=== PATIENT | female | born 1970 | race Caucasian/White ===

== ENCOUNTER 2017-09-21 09:28 | Outpatient (CLI) | payer OTHER | END 2017-09-21 09:29 | disposition home or self-care (01) | LOC: BICMAMMO 09:28 | PROVIDERS: ATTEND Obstetrics & Gynecology | DX: Z12.31 Encounter for screening mammogram for malignant neoplasm of breast (principal); N64.89 Other specified disorders of breast; Z80.3 Family history of malignant neoplasm of breast | CPT/HCPCS: 77063; 77067 ==

== ENCOUNTER 2018-03-24 12:30 | Observation (INO) | payer BC, OTHER ==
[2018-03-24 13:19] LABS: #Basophils 0.1 thou/uL (0.0-0.2); #Eosinphils 0.2 thou/uL (0.0-0.7); #Lymphocytes 2.4 thou/uL (1.20-3.40); #Monocytes 0.5 thou/uL (0.11-0.59); #Neutrophils 5.3 thou/uL (1.40-6.50); %Basophils 0.7 % (0.0-1.0); %Eosinophils 2.5 % (0.0-10.0); %Lymphocytes 28.2 % (21.0-51.0); %Monocytes 5.9 % (0.0-10.0); %Neutrophils 62.6 % (42.0-75.0); Hemoglobin 12.7 g/dL (12.0-16.0); Mean Corpuscular HGB CONC 34.1 g/dL (32.0-36.0); Mean Corpuscular Hemoglobin 30.2 pg (27.0-31.0); Mean Corpuscular Volume 88.7 fL (78.0-98.0); Mean Platelet Volume 7.4 fL (7.4-10.4); Platelet Count 332 thou/uL (130-400); RBC Distribution Width 11.7 % (11.5-14.5); Red Blood Cell (RBC) Count 4.21 mill/uL (4.20-5.40); White Blood Cell (WBC) Count 8.4 thou/uL (4.8-10.8)
[2018-03-24 13:35] LABS: ALT (SGPT) 13 U/L (8-55); AST (SGOT) 17 U/L (5-34); Albumin 4.1 g/dL (3.5-5.0); Alkaline Phosphatase 60 U/L (40-150); Anion Gap 12 mmol/L (10-20); BUN (Urea Nitrogen) 11 mg/dL (7.0-18.7); Bilirubin, Total 0.4 mg/dL (0.2-1.2); Calc. Creatinine Clearance 0 mL/min (70-130); Calcium 9.3 mg/dL (7.8-10.44); Carbon Dioxide 24 mmol/L (22-29); Chloride 105 mmol/L (98-107); Estimated GFR-MDRD 82; Globulin 3.6 g/dL (2.4-3.5); Glucose 96 mg/dL (70-105); Potassium 4.2 mmol/L (3.5-5.1); Protein, Total 7.7 g/dL (6.0-8.3); Sodium 137 mmol/L (136-145)
[2018-03-24] MEDS ORDERED: Diazepam 5 MG TAB ONE (14:33)
[2018-03-24] MEDS ORDERED: Meclizine HCl 25 MG TAB ONE (15:14)
--- NOTE | 2018-03-24 15:15 | CT ---
HEAD CT WITHOUT CONTRAST: HISTORY: Dizziness. COMPARISON: None. TECHNIQUE: A noncontrast head CT is performed from the skull base to the skull vertex. FINDINGS: No parenchymal hemorrhage. No extraaxial hematoma. No midline shift. Basilar cisterns are patent. Brain volume is age appropriate. Cortical hewitt white matter differentiation is preserved. The ventricles and sulci are patent and symmetric. Subtle hypodensity inferior to the posterior aspect of the left lentiform nucleus. Indeterminate lac unar infarct. The calvarium is intact. Adequate aeration of the sinuses and mastoid air cells. IMPRESSION: Indeterminate lacunar infarct inferior to the left lentiform nucleus. Nonemergent brain MRI if clinically warranted. POS: [facility]
[2018-03-24] MEDS ORDERED: Aspirin 325 MG TAB ONE (16:23)
[2018-03-24 16:58] LABS: Bilirubin Negative (Negative); Blood, Urine Negative (Negative); Clarity CLEAR (Clear); Glucose, Urine (Dipstick) Negative (Negative); Leukocyte Small (Negative); Nitrite Negative (Negative); Protein, Urine (Dipstick) Negative (Neg-Trace); Specific Gravity, Urine 1.004 (1.002-1.036); Urobilinogen 0.2 mg/dL (0.2-1.0); pH, Urine 6.5 (5.0-9.0)
[2018-03-24 17:00] LABS: Pregnancy Test - Urine (BHCG) Negative (Negative); Pregu Control Background? CLEAR/WHITE (CLR/WHITE); Pregu Control Bar Appear? YES (CONTROL BAR); Specific Gravity 1.004 (1.002-1.036)
[2018-03-24 17:06] LABS: Bacteria/HPF Rare-Few HPF (None Seen); Hyaline Casts/LPF 0-3 HYALINE CAST LPF (0-3 Hyaline); Pathc Cast-AUWi Flag 0.14 (0-2.49); RBC/HPF 0-3 HPF (0-3)
--- NOTE | 2018-03-24 17:21 | HP ---
PRIMARY CARE PHYSICIAN: Bonita Mullen, Family Nurse Practitioner. REASON FOR ADMISSION: Acute vertigo, rule out stroke. HISTORY OF PRESENT ILLNESS: A 47-year-old female, who has no medical history, who came to emergency room for evaluation of vertigo. The patient reports that on Wednesday night, she went to a friend's house where she had only a couple of wine, at that time she was feeling fine. Later on, she was feeling fatigued. She slept on couch, at that time, she was not having any symptoms, she went home when she woke up in the morning Wednesday around 5 or 6, she was not able to maintain her balance. She was feeling a spinning sensation. She did not have any associated nausea, vomiting, diplopia, chest pain, palpitation or shortness of breath. She has to sit down and relax and after that symptoms little bit got better, only she needs to be very careful for fall because she was not able to maintain balance. Whenever she was trying to band, at that time , she was feeling similar symptoms. She was able to go to work on Wednesday, Wednesday, Wednesday, but again yesterday afternoon after work, the patient started feeling symptoms again of dizziness, which was getting worse and that is why she called primary care physician and made appointment. When primary care physician tried to move her head on the right side, the patient felt pressure in her right eye and she was feeling a spinning sensation and that is why she was sent to emergency room. Patient felt nausea today, she did not have any vomiting. She denies any fall, but she was feeling blurred vision. Today in the emergency room, CT brain showed age indeterminate lacunar infarct in inferior to left lentiform nucleus. The patient is being admitted to stroke floor. She denies any ear, nose, throat symptoms. She never had any this type of problem in past. PAST MEDICAL HISTORY: Reviewed and negative. PAST SURGICAL HISTORY: Reviewed and negative. PAST PSYCHIATRIC HISTORY: Reviewed and negative. SOCIAL HISTORY: Patient drinks alcohol socially. She denies any tobacco, alcohol or illicit drug abuse. 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 FAMILY HISTORY: No strong family history of premature coronary artery disease, stroke or cancer. ALLERGIES: No known drug allergy. CURRENT HOME MEDICATIONS: The patient is not taking any prescribed or non- prescribed medication. EMERGENCY ROOM COURSE: Patient is given aspirin 325 mg, Valium 5 mg, meclizine 25 mg. REVIEW OF SYSTEMS: The following complete review of systems was negative, unless otherwise mentioned in the HPI or below: Constitutional: Weight loss or gain, ability to conduct usual activities. Skin: Rash, itching. Eyes: Double vision, pain. ENT/Mouth: Nose bleeding, neck stiffness, pain, tenderness. Cardiovascular: Palpitations, dyspnea on exertion, orthopnea. Respiratory: Shortness of breath, wheezing, cough, hemoptysis, fever or night sweats. Gastrointestinal: Poor appetite, abdominal pain, heartburn, nausea, vomiting, constipation, or diarrhea. Genitourinary: Urgency, frequency, dysuria, nocturia. Musculoskeletal: Pain, swelling. Neurologic/Psychiatric: Anxiety, depression. Allergy/Immunologic: Skin rash, bleeding tendency. Please see my HPI for pertinent positive and negative. All other review of systems reviewed and negative except as mentioned in the HPI. PHYSICAL EXAMINATION: VITAL SIGNS: On arrival, blood pressure 130/80, pulse 77, respiratory rate 16, temperature 98.1, saturation 100% on room air, weight 79.4 kilograms. GENERAL: Patient is currently alert, awake, no obvious acute distress. HEENT: Head: Normocephalic, atraumatic. Eyes: Pupils round, reactive to light. Extraocular muscle intact. Nystagmus noted, horizontal. NECK: Supple, no JVD, no thyromegaly, no carotid bruit. LUNGS: Clear to auscultation without any rhonchi or rales. CARDIAC: S1 and S2, regular without any murmur, no gallop, no rub. ABDOMEN: Soft, bowel sounds present, nontender, nondistended. No organomegaly , no mass, no suprapubic tenderness. BACK: Unremarkable, no CVA tenderness. EXTREMITIES: Upper extremity passive movement of all joints are normal. Lower extremities: No edema. Good distal pulsation. SKIN: No skin rash. HEMATOLOGICAL: No lymphadenopathy. NEUROLOGIC: The patient is alert, oriented x3. Cranial nerves II-XII intact except horizontal nystagmus noted. The patient does have difficulty performing cerebellar signs on the left side, otherwise motor and sensation within normal limits. Reflexes normal plantar bilateral flexor. SKIN: No skin rash. PSYCHIATRIC: Normal affect. SIGNIFICANT LABORATORY DATA: CT brain showing a indeterminant lacunar infarct in left lentiform nucleus. CBC: WBC 8.4, hemoglobin 12.7, platelets 332. BMP : Sodium 137, potassium 4.2, chloride 105, carbon dioxide 24, anion gap 12, BUN 11, creatinine 0.76, glucose 96, calcium 9.3. LFT: AST 17, ALT 13, alkaline phosphatase 60. ASSESSMENT : 1. Acute vertigo, most likely related with cerebrovascular accident. 2. Lacunar infarct in left lentiform nucleus. PLAN: 1. Observation to stroke floor. 2. Neurology consultation. 3. MRI brain, carotid Doppler, echocardiography. 4. Check lipid profile, homocysteine level. Start aspirin 325 mg p.o. daily. 5. Neuro check q.4 hourly, start statin therapy empirically. 6. PT/OT evaluation. 7. Symptomatic treatment for dizziness and vertigo with Antivert as needed. 8. Deep venous thrombosis prophylaxis not needed because we are expecting discharge in 24 hours. 9. Gastrointestinal prophylaxis, Pepcid 20 mg p.o. daily. 10. CODE STATUS: The patient is FULL CODE. The patient does not have any surrogate decision maker. 11. Disposition plan based on clinical course within 24 hours. 12. Plan of care discussed with the patient and family member at bedside in the emergency room. MANINDERD
[2018-03-24] MEDS ORDERED: Meclizine HCl 25 MG TAB PO PRN ×2 (17:46→18:08)
[2018-03-24] MEDS ORDERED: Ondansetron HCl/PF 4 MG/2 ML Vial IVP PRN ×2 (17:47→18:08)
[2018-03-24] MEDS ORDERED: Acetaminophen 325 MG TAB PO PRN ×2 (17:47→18:08)
[2018-03-24] MEDS ORDERED: Diazepam 10 MG/2 ML SYRINGE IVP PRN (17:47)
[2018-03-24] MEDS ORDERED: Ondansetron ODT 4 MG TAB SL PRN (17:47)
[2018-03-24] MEDS ORDERED: Eucerin (Mineral Oil/Petrolatum,White) 30 gm Jar TOP PRN (18:08)
[2018-03-24] MEDS ORDERED: hydrALAZINE 20 MG/ML VIAL SLOW IVP PRN (18:08)
[2018-03-24] MEDS ORDERED: Milk Of Magnesia 30 ML UDCUP PO PRN (18:08)
[2018-03-24] MEDS ORDERED: Loratadine 10 MG TAB PO PRN (18:08)
[2018-03-24] MEDS ORDERED: Sodium Chloride 0.65% Nasal 44 ML BOT EA NARE PRN (18:08)
[2018-03-24] MEDS ORDERED: Diabetic Tussin 200 MG/10 ML UDCUP PO PRN (18:08)
[2018-03-24] MEDS ORDERED: Mag-Al 1200 mg/1200 mg/30 ML UDCUP PO PRN (18:08)
[2018-03-24] MEDS ORDERED: Senokot 8.6 MG TAB PO PRN (18:08)
[2018-03-24] MEDS ORDERED: Artificial Tear Sol 15 ML BOT EA EYE PRN (18:08)
[2018-03-24] MEDS ORDERED: Zolpidem Tartrate 5 MG TAB PO PRN (18:08)
[2018-03-24] MEDS ORDERED: Ondansetron ODT 4 MG TAB PO PRN (18:08)
[2018-03-24] MEDS ORDERED: Loperamide HCl 2 MG CAP PO PRN (18:08)
[2018-03-24] MEDS ORDERED: HYDROcodone/Acetaminophen 5/325 mg Tablet PO PRN (18:08)
[2018-03-24 18:19] VITALS: BMI 30.9
[2018-03-24] MEDS ORDERED: Atorvastatin Calcium 40 MG TAB PO SCH (21:00)
[2018-03-24] MEDS: Famotidine 20 MG TAB PO SCH (21:01)
[2018-03-25 04:47] LABS: Cardiac Risk 3.3 (Less than 4.5)
--- NOTE | 2018-03-25 07:27 | CON ---
DATE OF CONSULTATION: 03/25/2018 CONSULTING PHYSICIAN: Hospital Service IMPRESSION: 1. Benign positional vertigo. 2. Hypodensity in the left lentiform nucleus, which is likely benign in origin. PLAN: 1. Prednisone 40 mg per day for 3 days. 2. Follow up with ENT if the symptoms do not resolve. Ms. Vila is a 47-year-old white female with no significant past history. Over the last week, she has had persistent positional vertigo. It is not associated with any focal neurologic symptoms. Ricky mahan does not get any type of headache with it. On one occasion, she felt a bit nauseous when it was qu ite intense. Symptoms seemed to wane in the middle of the week, but then got a bit worse towards the end of the week. She decided to go to the clinic for evaluation. They did an Chaitanya maneuver and pr ovoked the vertigo. She was sent to the ER for evaluation. She had a CT scan of the brain done whic h showed a hypodensity in the left lentiform nucleus. There were no abnormalities in the cerebellum or brainstem region. She feels reasonably well this morning, but notes some dizziness with postural change. PAST MEDICAL HISTORY: Otherwise, negative. FAMILY HISTORY: Unremarkable. ALLERGIES: None. SOCIAL HISTORY: Positive for some alcohol use, but no illicit drug use. MEDICATIONS: None. REVIEW OF SYSTEMS: Otherwise, negative for any focal neurologic symptoms. PHYSICAL EXAMINATION: GENERAL: She is a healthy appearing middle-aged woman in no acute distress. VITAL SIGNS: Blood pressure 117/76, pulse 69, respirations 17, temperature has been afebrile. HEENT: Pupils equal and reactive. Conjunctivae clear. Oropharynx clear. NECK: Supple. EXTREMITIES: No cyanosis, clubbing or edema. NEUROLOGIC: She is alert and appropriate. Her speech is fluent and clear. Cranial nerves are intac t. She had some nystagmus which was rotary in appearance in right gaze. Her exam was otherwise nonf ocal. CT scan was reviewed. SUMMARY: This middle-aged woman with no significant risk factors who presents with positional vertig o. I suspect this is either vestibular neuronitis or benign positional vertigo. MRI is pending. We can try some prednisone and she can follow up with ENT.
--- NOTE | 2018-03-25 08:44 | ULT ---
BILATERAL CAROTID DUPLEX ULTRASOUND WITH SPECTRAL ANALYSIS AND COLOR FLOW EVALUATION: DATE: 03/25/18. HISTORY: CVA, dizziness for 1 week. FINDINGS: Zaidi scale, color flow, Doppler evaluation, and spectral analysis of the bilateral carotid arteries i s performed with 2D imaging. No significant atherosclerotic plaque is seen in the carotid arteries b ilaterally. There is less than 50% maximal stenosis in the bilateral internal carotid arteries according to the p eak systolic velocities and the ICA/CCA ratios. The peak systolic velocity in the right ICA is 93.1 cm/s with an ICA/CCA ratio of 0.82. Peak systolic velocity in the left ICA is 111.4 cm/s with an ICA /CCA ratio of 0.97. Antegrade flow is demonstrated in the vertebral arteries bilaterally. IMPRESSION: No hemodynamically significant stenosis in the bilateral internal carotid arteries. POS: [facility]
[2018-03-25] MEDS ORDERED: Aspirin 325 mg Enteric Coated Tablet PO SCH (09:00)
[2018-03-25] MEDS ORDERED: Enoxaparin Sodium 40 MG/0.4 ML SYRINGE SC SCH (09:00)
--- NOTE | 2018-03-25 09:45 | PDOC.PN ---
- Subjective Encounter Start Date: 03/25/18 Encounter Start Time: 09:10 -: old records requested/rev Patient seen and examined. No new complaints. No overnight events - Objective Resuscitation Status: Resuscitation Status FULL:Full Resuscitation MAR Reviewed: Yes Vital Signs & Weight: Vital Signs (12 hours) Temp Pulse Resp BP BP Pulse Ox 03/25/18 07:43 97.6 F 60 16 118/61 99 03/25/18 04:00 98.2 F 71 18 118/55 L 97 03/25/18 00:00 98.3 F 82 18 117/64 97 03/24/18 22:04 98.0 F 76 19 125/58 L 97 Weight Weight 191 lb 11.2 oz I&O: 03/24/18 03/25/18 03/26/18 06:59 06:59 06:59 Intake Total 480 Balance 480 Result Diagrams: 03/24/18 13:07 03/24/18 13:07 Radiology Reviewed by me: Yes (carotid doppler negative) EKG Reviewed by me: Yes (nsr) Phys Exam - Physical Examination Constitutional: NAD HEENT: PERRLA, moist MMs, sclera anicteric Neck: no JVD, supple Respiratory: no wheezing, no rales, no rhonchi Cardiovascular: RRR, no significant murmur, no rub Gastrointestinal: soft, non-tender, no distention, positive bowel sounds Musculoskeletal: no edema, pulses present Neurological: non-focal, normal sensation, moves all 4 limbs Lymphatic: no nodes Psychiatric: normal affect, A&O x 3 Skin: no rash, normal turgor Dx/Plan (1) Vertigo Code(s): R42 - DIZZINESS AND GIDDINESS Status: Acute - Plan cont current plan of care * mRI and echo pending * neruology evaluated pt and recommendation pending * medication reviewed as below * symptomatic treatment * discussed with family * will discharge later today. Review of Systems - Review of Systems Constitutional: negative: fever, chills, sweats, weakness, malaise, other Eyes: negative: Pain, Vision Change, Conjunctivae Inflammation, Eyelid Inflammation, Redness, Other ENT: negative: Ear Pain, Ear Discharge, Nose Pain, Nose Discharge, Nose Congestion, Mouth Pain, Mouth Swelling, Throat Pain, Throat Swelling, Other Respiratory: negative: Cough, Dry, Shortness of Breath, Hemoptysis, SOB with Excertion, Pleuritic Pain, Sputum, Wheezing Cardiovascular: negative: chest pain, palpitations, orthopnea, paroxysmal nocturnal dyspnea, edema, light headedness, other Gastrointestinal: negative: Nausea, Vomiting, Abdominal Pain, Diarrhea, Constipation, Melena, Hematochezia, Other Genitourinary: negative: Dysuria, Frequency, Incontinence, Hematuria, Retention , Other Musculoskeletal: negative: Neck Pain, Shoulder Pain, Arm Pain, Back Pain, Hand Pain, Leg Pain, Foot Pain, Other Skin: negative: Rash, Lesions, Loyd, Bruising, Other Neurological: negative: Weakness, Numbness, Incoordination, Change in Speech, Confusion, Seizures, Other - Medications/Allergies Allergies/Adverse Reactions: Allergies Allergy/AdvReac Type Severity Reaction Status Date / Time No Known Allergies Allergy Verified 03/24/18 18:10 Medications: Current Medications Acetaminophen (Tylenol) 650 mg PO Q4H PRN PRN Reason: Headache/Fever or Pain Hydrocodone Bitart/Acetaminophen ([place] 5/325) 1 tab PO Q4H PRN PRN Reason: Moderate Pain (4-6) Al Hydroxide/Mg Hydroxide (Maalox) 30 ml PO Q6H PRN PRN Reason: Heartburn or Indigestion Artificial Tears (Tears Renewed 15ml Bottle) 0 drop EA EYE PRN PRN PRN Reason: Dry Eyes Aspirin (Ecotrin) 325 mg PO DAILY [facility] Atorvastatin Calcium (Lipitor) 40 mg PO HS [facility] Last Admin: 03/24/18 21:01 Dose: 40 mg Enoxaparin Sodium (Lovenox) 40 mg SC 0900 [facility] Famotidine (Pepcid) 20 mg PO BID [facility] Last Admin: 03/24/18 21:01 Dose: 20 mg Guaifenesin (Robitussin Sf) 200 mg PO Q4H PRN PRN Reason: Cough Hydralazine HCl (Apresoline) 10 mg SLOW IVP Q4H PRN PRN Reason: Systolic BP > 180 Loperamide HCl (Imodium) 2 mg PO PRN PRN PRN Reason: Diarrhea/Loose Stools Loratadine (Claritin) 10 mg PO DAILYPRN PRN PRN Reason: Sinus Symptoms Magnesium Hydroxide (Milk Of Magnesium) 30 ml PO DAILYPRN PRN PRN Reason: Constipation Meclizine HCl (Antivert) 25 mg PO Q8H PRN PRN Reason: Dizziness Mineral Oil/White Petrolatum (Eucerin Cream) 0 gm TOP BIDPRN PRN PRN Reason: Dry Skin Ondansetron HCl (Zofran Odt) 4 mg PO Q6H PRN PRN Reason: Nausea/Vomiting Ondansetron HCl (Zofran) 4 mg IVP Q6H PRN PRN Reason: Nausea/Vomiting Senna (Senokot) 2 tab PO HSPRN PRN PRN Reason: Constipation Sodium Chloride ([place] Nasal [place] 0.65%) 0 ml EA NARE QIDPRN PRN PRN Reason: Nasal Congestion Sodium Chloride (Flush - Normal Saline) 10 ml IVF PRN PRN PRN Reason: Saline Flush Zolpidem Tartrate (Ambien) 5 mg PO HSPRN PRN PRN Reason: Insomnia
[2018-03-25] MEDS: Famotidine 20 MG TAB PO SCH (10:22)
--- NOTE | 2018-03-25 12:47 | DIS ---
DATE OF ADMISSION: 03/24/2018 DATE OF DISCHARGE: 03/25/2018 PRIMARY CARE PHYSICIAN: Bonita Mullen NP. DISCHARGE DISPOSITION: Home. PRIMARY DISCHARGE DIAGNOSES: 1. Benign positional vertigo. 2. Hypodensity in left lentiform nucleus, benign. SECONDARY DISCHARGE DIAGNOSIS: None. PRIMARY PROCEDURE/OPERATION: None. RADIOLOGICAL INVESTIGATION: CT brain showed hypodensity in the left lentiform nucleus. Carotid Dopp ler negative for any stenosis. MRI brain is pending. Echocardiography is pending. SIGNIFICANT LABORATORY DATA: CBC normal. BMP normal. LFT normal. LDL 65. Homocysteine 5.35. Uri nalysis unremarkable. DISCHARGE MEDICATIONS: Prednisone 40 mg p.o. for 3 days. CONTRAINDICATIONS: None. CODE STATUS: Full code. INPATIENT CONSULTANTS: Dr. Paris Ponce recommended only prednisone therapy. TEST RESULTS PENDING ON DISCHARGE: None. ALLERGIES: No known drug allergy. DISCHARGE PLAN: Post hospital, the patient will follow up with primary care physician. The patient is also advised that if her symptoms do not improve, then the patient needs to follow up with ENT. T he patient is also advised to follow up with neurologist if needed. HOSPITAL COURSE: A 47-year-old female who was sent by primary care physician. The patient was havin g vertigo, which was positional for the last few days. Her symptoms initially improved and then marv en worse. In the emergency room, CT brain showed hypodensity in left lentiform nucleus. We admitted this patient in the hospital. Her cerebellar examination was normal. Her routine examination was n ormal. We did a stroke observation and we ruled out stroke. We are waiting for MRI brain and echoca rdiography. If that test is normal, then the patient will be discharged home with outpatient followu p. Neurology saw this patient and they are not thinking that this patient has any kind of stroke and that is why this patient does not need any stroke treatment or stroke protocol. We prescribed prednisone for 3 days and Antivert 25 mg t.i.d. p.r.n. basis for vertigo. The patient will follow up with primary care physician. Plan of care discussed with the patient. The patient was seen and examined at bedside today. Please see my progress note from today for furth er detail.
--- NOTE | 2018-03-25 14:42 | MRI ---
MRI BRAIN WITHOUT IV CONTRAST: 03/25/2018 HISTORY: TIA. Dizziness. COMPARISON: CT head from 03/24/2018. FINDINGS: The low density focus within the inferior aspect, left basal ganglia, likely represents a dilated per ivascular space. There is no evidence of an acute infarction. No other signal abnormalities are see n throughout the brain. The septum pellucidum and third ventricle are in the midline. The ventricular system is normal in si ze, shape, and position. Appropriate flow voids are demonstrated at the base of the brain. The orbits are normal and symmetric in appearance bilaterally. There is minimal mucosal thickening in the right sphenoid sinus. The remainder of the paranasal sinu ses are clear. The skull base has a normal MRI appearance. IMPRESSION: 1. No acute intracranial abnormalities demonstrated. 2. Minimal sinus disease, right sphenoid sinus. POS: [facility]
[2018-03-25 16:04] VITALS: BP 121/69; TEMP 97.7
== END 2018-03-25 17:15 | disposition home or self-care (01) ==
LOC: ERS 12:30 → 2SE 17:41
PROVIDERS: ADMIT Internal Medicine; ATTEND Internal Medicine
DX: H81.10 Benign paroxysmal vertigo, unspecified ear (principal)
CPT/HCPCS: 36415; 70450; 70551; 80053; 80061; 81003; 81015; 81025; 83090; 85025; 93306; 93880; G0378; G8978-GP-CJ; G8979-GP-CJ; G8980-GP-CJ; G8987-GO-CI; G8988-GO-CI; G8989-GO-CI; J1650